=== PATIENT | male | born 1995 | race Caucasian/White ===

== ENCOUNTER 2024-10-02 09:26 | Inpatient (IN) | payer OTHER, SELFPAY ==
[2024-09-30 21:00] VITALS: BP 112/68
[2024-09-30 21:37] LABS: % Basophils 0.4 % (0-2); % Eosinophils 0.2 % (0-6); % Immature Granulocytes 0.4 % (0-0.5); % Lymphocytes 10.2 % (20.5-51.1); % Monocytes 7.1 % (1.7-9.3); % Neutrophils 81.7 % (42.2-75.2); Absolute Lymphocytes 0.6 10^3/uL (1.2-3.4); Absolute Monocytes 0.4 10^3/uL (0.1-0.6); Absolute Neutrophils 4.5 10^3/uL (1.4-6.5); Hematocrit 42.2 % (39.0-52.0); Hemoglobin 14.4 g/dL (13.0-18.0); Mean Corp Hgb Conc. 34.1 g/dL (33.0-37.0); Mean Corpuscular Hgb 27.1 pg (27.0-31.0); Mean Corpuscular Volume 79.3 fL (80.0-94.0); Nucleated Red Blood Cells % 0 % (-); Red Blood Cell Count 5.32 10^6/uL (4.70-6.10); Red Cell Dist. Width 16.5 % (11.5-14.5); White Blood Cell Count 5.5 10^3/uL (4.8-10.8)
[2024-09-30 21:45] LABS: Mean Platelet Volume 10.5 fL (7.4-10.4)
[2024-09-30 21:46] LABS: Platelet Count 68 10^3/uL (130-400)
[2024-09-30 21:51] LABS: ALT (SGPT) 118 U/L (0-50); AST (SGOT) 118 U/L (17-59); Albumin 3.7 g/dl (3.5-5.0); Alkaline Phosphatase 67 U/L (38-126); Blood Urea Nitrogen 10 mg/dl (9-20); Calcium 8.3 mg/dl (8.4-10.2); Carbon Dioxide 20 mmol/L (22-30); Chloride 102 mmol/L (98-107); Glucose 123 mg/dl (70-99); Lipase 164 U/L (23-300); Potassium 3.7 mmol/L (3.5-5.1); Sodium 131 mmol/L (135-145); Total Bilirubin 2.2 mg/dl (0.2-1.3); Total Protein 6.3 g/dl (6.3-8.2); eGFR > 60.00
[2024-09-30 21:56] LABS: COVID-19 Antigen Negative (Negative)
[2024-09-30 23:53] VITALS: BP 130/65
[2024-09-30 23:57] VITALS: BMI 32.3
[2024-10-01] VITALS (15 sets, daily range): BP systolic 93–143; BP diastolic 34–76; BMI 32.9
--- NOTE | 2024-10-01 00:58 | ED.GENMED ---
History of Present Illness
General
Chief Complaint: Fever
Source: patient
Exam Limitations: none
Time Seen by Provider: 10/01/24 00:42
Nursing documentation reviewed up to this point in time: agreed with
History of Present Illness
History of Present Illness:
29-year-old male with a past medical history of cystic fibrosis who presents to the emergency room for evaluation of fever and multiple other complaints. Patient says he has been sick for about 2 days. He says that symptoms became more severe
today. He describes fever and chills with Tmax 103 �F at home. He reports that he has had nausea, vomiting, upper abdominal pain. He says he has had profuse diarrhea nonbloody. He reports he has had a productive cough. He reports myalgias,
headache, fatigue. Nasal congestion. Denies sore throat. He denies any chest pain or significant shortness of breath. 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
He did apparently have negative flu and COVID swabs at urgent care today prior to ER referral.
Review of Systems
Review of Systems
All Other Systems: ROS reviewed and negative except as documented in HPI and ROS
Constitutional: Reports fever, fatigue and chills
EENT: Reports runny nose; Denies sore throat
Respiratory: Reports cough; Denies trouble breathing
Cardiac: Denies chest pain
ABD/GI: Reports abdominal pain, nausea, vomiting and diarrhea
: Denies flank pain
Musculoskeletal: Reports muscle pain
Neurological: Reports headache; Denies dizzy
Phy Exam
Physical Exam
Physical Exam:
General: Awake, alert, laying in bed appears uncomfortable
Head: Normocephalic, atraumatic
Eyes: Conjunctiva normal, sclera anicteric, pupils equal round and reactive to light bilaterally
Throat: Airway intact, dry mucous membranes
Neck: Trachea midline, supple without meningismus
Lungs: Clear to auscultation bilaterally, no wheezing, rales, rhonchi
Heart: Regular rate and rhythm, no murmurs, gallops, or rubs
Abd: Soft, non distended, markedly tender in the epigastrium
Neuro: No gross deficits
Skin: no rash
Extremities: No edema in extremities, equal pulses in all extremities
Scores
Heart Failure Risk
Heart Failure Risk Score: Not Applicable
Heart Score for Chest Pain Patients
STEMI patient?: Not applicable
Withdrawal Assessment of Alcohol
Withdrawal Assessment Completed?: Not applicable
Course
Orders/Labs/Results
Orders:
Orders
09/30/24 21:09
COVID-19 Antigen Urgent
Source: Nasal Swab
Complete Blood Count/With Diff Urgent
Comprehensive Metabolic Panel Urgent
Lipase Urgent
Influenza A+B Rapid Molecular Urgent
[facility] Source: Nasal Swab
Specimen Description:
10/01/24 00:56
CT Abd/pelvis W Iv Cont Urgent
Comment:
Reason For Exam: upper abd pain and tenderness, N/V
0.9% Sodium Chloride 1000 ml [Nss] 1,000 ml IV BOLUS
Morphine Sulfate 4 mg IV NOW STA
Ondansetron Injectable [Zofran] 4 mg IV NOW STA
CR Chest - 2 Views Urgent
Comment:
Reason For Exam: cough, fever, h/o CF
10/01/24 00:58
Acetaminophen [Tylenol] 650 mg PO NOW STA
10/01/24 01:02
Add On- LAB Urgent
Tests Added?: Lipase
10/01/24 01:20
Monotest Urgent
Abnormal Lab Results
09/30/24 10/01/24
21:09 01:20
MCV 79.3 L fL
(80.0-94.0)
RDW 16.5 H %
(11.5-14.5)
Plt Count 68 L 10^3/uL
(130-400)
MPV 10.5 H fL
(7.4-10.4)
Absolute Lymphs (auto) 0.6 L 10^3/uL
(1.2-3.4)
Neutrophils % 81.7 H %
(42.2-75.2)
Lymphocytes % 10.2 L %
(20.5-51.1)
Sodium 131 L mmol/L
(135-145)
Carbon Dioxide 20 L mmol/L
(22-30)
Glucose 123 H mg/dl
(70-99)
Calcium 8.3 L mg/dl
(8.4-10.2)
Total Bilirubin 2.2 H mg/dl
(0.2-1.3)
AST 118 H U/L
(17-59)
ALT 118 H U/L
(0-50)
Monoscreen Positive A
(Negative)
09/30/24 21:09
09/30/24 21:09
Vital Signs
Initial and Last Documented VS:
Initial Vital Signs
Temp Pulse Resp BP Pulse Ox
37.4 C 92 18 112/68 98
09/30/24 21:00 09/30/24 21:00 09/30/24 21:00 09/30/24 21:00 09/30/24 21:00
Last Documented Vital Signs
Temp Pulse Resp BP Pulse Ox
37.0 C 60 16 126/69 97
10/01/24 02:36 10/01/24 03:30 10/01/24 03:30 10/01/24 03:30 10/01/24 03:30
MDM/Problems Addressed
Differential Diagnosis Includes:
Pancreatitis, cholelithiasis, cholecystitis, gastritis/PUD, viral syndrome/mononucleosis, pneumonia
MDM/Problems Addressed:
29-year-old male with cystic fibrosis presents to the ER with multiple complaints chief among and abdominal pain with nausea/vomiting/diarrhea also having cough and congestion, high fever. He arrives to us normotensive, heart rate in the 80s,
normal respiratory rate, normal pulse ox; he does have a low-grade fever here reports 103 degree fever at home. Physical exam as above. Labs sent in triage including a CBC which shows new thrombocytopenia. CMP shows elevated T. bili and
transaminases. Added lipase. Will add urinalysis, chest x-ray, CT abdomen pelvis. Check Monospot. Provide fluids, antiemetic, pain control, Tylenol for fever. Reassess after the above.
Lipase normal. Chest x-ray reviewed by me shows no acute pneumonia. Patient is positive for mono. CT abdomen pending. Vital stable.
CT shows cirrhosis no other acute pathology; I spoke with patient he says that he has known liver disease related to cystic fibrosis and he was aware of this finding. Likely contributing to thrombocytopenia as last comparison lab is from 2016. He
is feeling much better after treatment here has not had additional vomiting. Will continue to monitor here in the emergency room and reassess if he remains well-appearing he can likely be discharged I did speak to him at length about diagnosis of
mononucleosis, precautions regarding splenic enlargement, discussed measures to avoid spreading to close contacts.
Chronic conditions affecting care:
Cystic fibrosis
*Radiology
Radiology exam reviewed: preliminary read by ED provider and radiology read reviewed
*Pulse Oximetry
Patient hypoxic: no
*Critical Care Note
Total Time (30-74mins, 75-104mins- exclusive of procedures): Not Applicable
Data Reviewed
Source: patient and family
ED Attending Note
-
Portions of this chart may have been created with voice recognition software.� Occasional wrong word or��sound alike� substitutions may have occurred due to the inherent limitations of voice recognition software.
Discharge Plan
Departure
Patient with high blood pressure during this ER visit?: No
Discharge Problem:
Mononucleosis, Thrombocytopenia, Cirrhosis
Instructions: Mononucleosis
Prescriptions:
No Action
bupropion HCl 100 MG tablet
200 mg PO DAILY
lisdexamfetamine [Vyvanse] 50 MG capsule
50 mg PO DAILY
Vitamin D
1 tab PO DAILY
Referrals:
UNKNOWN - PT DOES,NOT KNOW [Family Provider] -
Activity Restrictions/Additional Instructions:
Thank you for visiting the Emergency Department at [facility].
1. Please schedule a follow up appointment as directed. Call first thing tomorrow morning to make an appointment.
2. If indicated, please take your medications as instructed and indicated on discharge paperwork.
3. If any of your symptoms do not improve, or persist, or become more severe within 6-12 hours, please return to the emergency department for further care.
4. Please return to the emergency department if you develop a headache, neck pain/stiffness, fever greater than 100.4F, chest pain, shortness of breath, persistent nausea, vomiting, slurred speech, difficulty walking, numbness/tingling, weakness,
signs of infection or any other symptoms that are worrisome to you.
Please call [phone] if you have any questions.
Interventions
Interventions:
*Risk Screen - Suicide Last Done: 09/30/24 21:00
*General Assessment Last Done: 09/30/24 21:00
*Neglect/Abuse Screening Last Done: 09/30/24 21:00
ED- Fall Risk Assessment Last Done: 10/01/24 03:30
*ED COVID-19 Vaccine History Last Done: 09/30/24 21:00
ED- Neurological Assessment Last Done: 10/01/24 03:30
ED-Skin Assessment Last Done: 10/01/24 03:30
Discharge Date and Time
Print Language: SLOVENIAN
[2024-10-01] MEDS: NSS 1000 IV (01:17)
[2024-10-01] MEDS: MORPHINE SULFATE 4 MG IV ×4 (01:17→23:05)
[2024-10-01] MEDS: TYLENOL 650 MG PO (01:17)
[2024-10-01] MEDS: ZOFRAN 4 MG IV ×2 (01:17→16:58)
[2024-10-01 01:56] LABS: Monotest Positive (Negative)
--- NOTE | 2024-10-01 12:22 | HPS.HSE ---
Family Physician
-
Family Physician: NOT KNOW UNKNOWN - PT DOES
Chief Complaint
-
Fever, nausea, vomiting, abdominal pain
History of Present Illness
29 y/o male with past medical history of cystic fibrosis and liver cirrhosis presented with fever, nausea, vomiting and abdominal pain, as well as cough productive of clear mucus for approximately the past 2 days. He reported that his temperature at
home was as high as 103 F. He denied any dysuria, urinary frequency or suprapubic pain/tenderness. The abdominal pain is in the middle upper part of his abdomen.
Medical History
Past Medical History
Past Medical History: Reports Other (As per HPI above)
Past Surgical History: Reports Other ([place] teeth removal, dental implants. Ear tubes placement.)
Social History
Tobacco: Former Smoker
Alcohol: None
Drug: Marijuana
Family History
Family History: Not pertinent
Allergies / Home Medications
Allergies reflects when Allergies were last updated in [facility].
Home Medications with original date entered in [facility]
Allergy/Medication List:
Allergies
Allergy/AdvReac Type Severity Reaction Status Date / Time
Penicillins Allergy Unknown Verified 12/22/15 16:11
Home Medications
No Meds [No Current Medications] 10/01/24
Review of Systems
-
A 12 point ROS was completed and negative except as noted: Yes
Physical Exam
Vital Signs
Vital Signs
Temp Pulse Resp BP Pulse Ox
98.1 F 78 14 93/59 93
10/01/24 06:56 10/01/24 06:56 10/01/24 06:56 10/01/24 09:52 10/01/24 09:52
Physical Exam
General: No Apparent Distress
HEENT: NormoCephalic, Moist mucous membranes and Atraumatic
Respiratory: Clear
Cardiac: S1/S2 and Regular Rhythm
GI: Soft, Normal Bowel Sounds and Tender
Musculoskeletal: No Cyanosis and No Edema
Skin: Warm and Dry
Neuro: Awake, Alert and AO x 3
Psych: Calm and Intact Judgment/Insight
Laboratory Results
-
09/30/24 21:09
09/30/24 21:09
Laboratory Results
Total Bilirubin 2.2 mg/dl (0.2-1.3) H 09/30/24 21:09
AST 118 U/L (17-59) H 09/30/24 21:09
ALT 118 U/L (0-50) H 09/30/24 21:09
Alkaline Phosphatase 67 U/L (38-126) 09/30/24 21:09
Lipase Cancelled 10/01/24 00:56
Impression/Plan
-
Assessment/Plan
Fever, Abdominal Pain, Splenomegaly, Fatigue, Headache
Nausea and Vomiting
Monospot Test Positive
Infectious Mononucleosis
-Positive Monospot Test suggestive of Infectious Mononucleosis
-IV fluids, supportive care
-No UTI signs of symptoms
-No sore throat
-Does have symptoms suggestive of bronchitis
-Closely monitor patient's mouth/airway for any swelling or obstruction -- if this develops, then steroids will be needed
High AST and ALT
-Likely from infection as above and also patient's history of liver disease
-Monitor CMP
Thrombocytopenia
-Monitor CBC
Cough Productive of Clear Sputum
Acute Bronchitis
-Chest X-Ray with questionable minimal patchy left basilar opacity such as subsegmental atelectasis and/or pneumonia.
-Negative flu and COVID swabs at urgent care
Hepatic Cirrhosis on CT Imaging
Severe Diffuse Fatty Infiltration on CT Imaging
Splenomegaly, suggestive of portal hypertension, on CT Imaging
Large venous collaterals within the peritoneum and retroperitoneum, including esophageal varices, consistent with portal hypertension.
History of recurrent pancreatitis related to cystic fibrosis
Fat-containing umbilical hernia without evidence of incarceration.
Cystic Fibrosis
DVT Prophylaxis: SCDs. Lovenox.
[2024-10-01] MEDS: LR 1000 IV ×2 (14:01→23:16)
--- NOTE | 2024-10-01 15:25 | PTCARENOTE ---
Patient arrived from ER. Presents with abdominal pain, nausea and vomiting. + [place].
[2024-10-01] MEDS: DILAUDID 0.5 MG IV (15:52)
[2024-10-02] MEDS: MORPHINE SULFATE 4 MG IV ×5 (03:17→23:30)
[2024-10-02 03:18] VITALS: BP 128/69
--- NOTE | 2024-10-02 05:35 | PTCARENOTE ---
Patient's tele alarming for [employer]. patient is sleeping at this time. tele strip reviewed by MYCHAL Hernandez. no new orders at this time.
--- NOTE | 2024-10-02 06:57 | W.PN.HOSP.TC ---
Today's Communication/Plan
-
See plan
Assessment / Plan
Assessment / Plan
Physical Exam
General: No Apparent Distress
HEENT: Normocephalic. Moist mucous membranes
Respiratory: Clear to Auscultation Bilaterally
Cardiac: S1/S2 and Regular Rate and Rhythm
GI: Soft, Normal Bowel Sounds and Tenderness in upper abdomen
Musculoskeletal: No Cyanosis and No Edema
Skin: Warm and Dry
Neuro: Awake, Alert and AO x 3
Psych: Calm and Intact Judgment/Insight
Assessment/Plan
Fever, Abdominal Pain, Splenomegaly, Fatigue, Headache
Nausea and Vomiting
Monospot Test Positive
Infectious Mononucleosis
-Still with poor PO intake
-Positive Monospot Test suggestive of Infectious Mononucleosis, but this would not explain patient's abdominal pain
-IV fluids, supportive care
-No UTI signs or symptoms
-No sore throat at this time
-Does have symptoms suggestive of bronchitis
-Closely monitor patient's mouth/airway for any swelling or obstruction -- if this develops, then steroids will be needed
-Given patient significant CF history, cirrhosis, recurrent pancreatitis, etc, I called on 10/02/24 [facility] and spoke to Dr. Carlie Burrell,
coding clerk, and she accepted the patient for transfer, she mentioned Infectious Mononucleosis would not normally cause abdominal pain, and
recommended continued work-up and treatment of patient's abdominal pain, and to consider GI consultation, and if patient's respiratory symptoms worsen
to check CT Chest
High AST and ALT
-Improving
-Likely from infection as above and also patient's history of liver disease
-Monitor CMP
Thrombocytopenia
-Monitor CBC
-No signs or symptoms of bleeding
Cough Productive of Clear Sputum
Acute Bronchitis
-Chest X-Ray with questionable minimal patchy left basilar opacity such as subsegmental atelectasis and/or pneumonia.
-Negative flu and COVID swabs at urgent care
Hepatic Cirrhosis on CT Imaging
Severe Diffuse Fatty Infiltration on CT Imaging
Splenomegaly, suggestive of portal hypertension, on CT Imaging
Large venous collaterals within the peritoneum and retroperitoneum, including esophageal varices, consistent with portal hypertension.
History of recurrent pancreatitis related to cystic fibrosis
Fat-containing umbilical hernia without evidence of incarceration.
Cystic Fibrosis
DVT Prophylaxis: SCDs. Lovenox (May need to stop Lovenox if platelets drop to less than 50k)
Anticipated Discharge: > 48 hours
Subjective/Interval History
-
Date of Service: October 02, 2024
Objective Data
-
Labs:
Laboratory Results
10/02/24
06:54
WBC Pending
Hgb Pending
Hct Pending
Plt Count Pending
Sodium Pending
Potassium Pending
Chloride Pending
Carbon Dioxide Pending
BUN Pending
Creatinine Pending
Glucose Pending
Calcium Pending
Total Bilirubin Pending
AST Pending
ALT Pending
Alkaline Phosphatase Pending
Vital Signs:
Vital Signs
Temp Pulse Resp BP Pulse Ox
98.4 F 64 16 128/69 99
10/02/24 03:18 10/02/24 03:18 10/02/24 03:18 10/02/24 03:18 10/02/24 03:18
I&O
09/30/24 10/01/24 10/02/24
06:59 06:59 06:59
Intake Total 480 / 480
Output Total 1200 / 1200
Balance -720 / -720
[2024-10-02 07:45] LABS: % Basophils 0.8 % (0-2); % Eosinophils 2.8 % (0-6); % Immature Granulocytes 0.3 % (0-0.5); % Lymphocytes 29.9 % (20.5-51.1); % Monocytes 13.8 % (1.7-9.3); % Neutrophils 52.4 % (42.2-75.2); Absolute Eosinophils 0.1 10^3/uL (0-0.7); Absolute Lymphocytes 1.1 10^3/uL (1.2-3.4); Absolute Monocytes 0.5 10^3/uL (0.1-0.6); Absolute Neutrophils 1.9 10^3/uL (1.4-6.5); Hematocrit 41.1 % (39.0-52.0); Hemoglobin 13.4 g/dL (13.0-18.0); Mean Corp Hgb Conc. 32.6 g/dL (33.0-37.0); Mean Corpuscular Hgb 26.6 pg (27.0-31.0); Mean Corpuscular Volume 81.7 fL (80.0-94.0); Mean Platelet Volume 10.4 fL (7.4-10.4); Nucleated Red Blood Cells % 0 % (-); Platelet Count 59 10^3/uL (130-400); Red Blood Cell Count 5.03 10^6/uL (4.70-6.10); Red Cell Dist. Width 16.7 % (11.5-14.5); White Blood Cell Count 3.6 10^3/uL (4.8-10.8)
[2024-10-02 07:48] VITALS: BP 116/66
[2024-10-02] MEDS: LR 1000 IV ×2 (08:55→20:25)
[2024-10-02 09:13] LABS: ALT (SGPT) 92 U/L (0-50); AST (SGOT) 81 U/L (17-59); Albumin 3.1 g/dl (3.5-5.0); Alkaline Phosphatase 58 U/L (38-126); Blood Urea Nitrogen 9 mg/dl (9-20); Calcium 8.1 mg/dl (8.4-10.2); Carbon Dioxide 23 mmol/L (22-30); Chloride 105 mmol/L (98-107); Estimated Creatinine Clearance > 125 ml/min; Glucose 78 mg/dl (70-99); Magnesium 1.6 mg/dl (1.6-2.3); Potassium 3.6 mmol/L (3.5-5.1); Sodium 135 mmol/L (135-145); Total Bilirubin 1.8 mg/dl (0.2-1.3); Total Protein 5.6 g/dl (6.3-8.2); eGFR > 60.00
[2024-10-02 11:26] VITALS: BP 134/67
[2024-10-02] MEDS: ZOFRAN 4 MG IV ×2 (12:02→20:26)
--- NOTE | 2024-10-02 13:09 | CM ---
Pt seen bedside, initial assessment completed. Admitted for fever, nausea, vomiting, abdominal pain.
Pt reports that he lives w/ his fiance and grandmother in a 2 story townhouse- no steps to enter. Pt is independent w/ ambulating and ADLs, no DME identified. Pt denies SNF/VN/PT. No current OP or home services at this time.
PCP: [place] [facility], pt doesn't recall name of PCP
Pharmacy: [facility]
Address, point of contact and insurance verified. Confirmed w/ admission [place] health plan insurance as pt is listed as self pay.
Plan: Home; no needs likely
[2024-10-02 15:45] VITALS: BP 131/77
[2024-10-02 20:27] VITALS: BP 128/76
[2024-10-02 23:25] VITALS: BP 119/65
[2024-10-03 03:40] VITALS: BP 108/55
[2024-10-03] MEDS: MORPHINE SULFATE 4 MG IV (04:03)
[2024-10-03] MEDS: LR 1000 IV (05:39)
--- NOTE | 2024-10-03 07:33 | W.PN.HOSP.TC ---
Today's Communication/Plan
-
Discharge today
Assessment / Plan
Assessment / Plan
Physical Exam
General: No Apparent Distress
HEENT: Normocephalic. Moist mucous membranes
Respiratory: Clear to Auscultation Bilaterally
Cardiac: S1/S2 and Regular Rate and Rhythm
GI: Soft, Normal Bowel Sounds and Tenderness in upper abdomen
Musculoskeletal: No Cyanosis and No Edema
Skin: Warm and Dry
Neuro: Awake, Alert and AO x 3
Psych: Calm and Intact Judgment/Insight
Assessment/Plan
Fever, Abdominal Pain, Splenomegaly, Fatigue, Headache
Nausea and Vomiting - RESOLVED
Monospot Test Positive
Infectious Mononucleosis
-Positive Monospot Test suggestive of Infectious Mononucleosis, but this would not explain patient's abdominal pain
-IV fluids, supportive care
-No UTI signs or symptoms
-No sore throat at this time
-Does have symptoms suggestive of bronchitis
-Closely monitor patient's mouth/airway for any swelling or obstruction -- if this develops, then steroids will be needed
-Given patient significant CF history, cirrhosis, recurrent pancreatitis, etc, I called on 10/02/24 [facility] and spoke to Dr. Carlie Burrell,
international marketing executive, and she accepted the patient for transfer, she mentioned Infectious Mononucleosis would not normally cause abdominal pain, and
recommended continued work-up and treatment of patient's abdominal pain, and she also said to consider GI consultation, and if patient's respiratory symptoms worsen
to check CT Chest
-Patient today denied any shortness of breath or significant cough, and feels his breathing is at his normal usual self/is back to baseline
-Consulted GI: per [facility] communication between GI and myself, is it okay to discharge the patient today per GI -- patient's abdominal pain is likely from significant hepatosplenomegaly they are touching on CT.
-GI discussed abdominal contact precautions for spleen and will give him all his labs and imaging for [place]
-Appreciate GI
High AST and ALT - IMPROVED
-Improving
-Likely from infection as above and also patient's history of liver disease
-Monitor CMP
Thrombocytopenia
-Monitor CBC
-No signs or symptoms of bleeding
Cough Productive of Clear Sputum
Acute Bronchitis
-Chest X-Ray with questionable minimal patchy left basilar opacity such as subsegmental atelectasis and/or pneumonia.
-Negative flu and COVID swabs at urgent care
-Patient currently does not have any respiratory symptoms and says that he feels ready to go home today
Hepatic Cirrhosis on CT Imaging
Severe Diffuse Fatty Infiltration on CT Imaging
Splenomegaly, suggestive of portal hypertension, on CT Imaging
Large venous collaterals within the peritoneum and retroperitoneum, including esophageal varices, consistent with portal hypertension.
History of recurrent pancreatitis related to cystic fibrosis
Fat-containing umbilical hernia without evidence of incarceration.
Cystic Fibrosis
DVT Prophylaxis: SCDs. Lovenox (May need to stop Lovenox if platelets drop to less than 50k)
More than 30 minutes spent in discharge including
Final examination of the patient
Summarizing hospital stay
Instructions for continuing care to all relevant caregivers
Preparation of discharge records, prescriptions, and referral forms
Total time spent (in minutes): 35
Anticipated Discharge: Today
Subjective/Interval History
-
Date of Service: October 03, 2024
Patient was seen and examined. He reported feeling well, he said his abdominal pain is back to his baseline and he is willing to go home today. He is tolerating a diet.
Objective Data
-
Labs:
Laboratory Results
10/03/24
06:00
WBC Pending
Hgb Pending
Hct Pending
Plt Count Pending
Sodium Pending
Potassium Pending
Chloride Pending
Carbon Dioxide Pending
BUN Pending
Creatinine Pending
Glucose Pending
Calcium Pending
Total Bilirubin Pending
AST Pending
ALT Pending
Alkaline Phosphatase Pending
Vital Signs:
Vital Signs
Temp Pulse Resp BP Pulse Ox
97.8 F 65 16 108/55 99
10/03/24 03:40 10/03/24 03:40 10/03/24 03:40 10/03/24 03:40 10/03/24 03:40
I&O
10/02/24 10/03/24 10/04/24
06:59 06:59 06:59
Intake Total 480 / 480 1200 / 1200
Output Total 1200 / 1200
Balance -720 / -720 1200 / 1200
[2024-10-03 07:45] VITALS: BP 138/78
[2024-10-03 08:38] LABS: % Basophils 0.7 % (0-2); % Eosinophils 4.3 % (0-6); % Lymphocytes 28.2 % (20.5-51.1); % Monocytes 13.9 % (1.7-9.3); % Neutrophils 52.9 % (42.2-75.2); Absolute Eosinophils 0.1 10^3/uL (0-0.7); Absolute Lymphocytes 0.8 10^3/uL (1.2-3.4); Absolute Monocytes 0.4 10^3/uL (0.1-0.6); Absolute Neutrophils 1.5 10^3/uL (1.4-6.5); Hematocrit 41.3 % (39.0-52.0); Hemoglobin 13.3 g/dL (13.0-18.0); Mean Corp Hgb Conc. 32.2 g/dL (33.0-37.0); Mean Corpuscular Hgb 26.2 pg (27.0-31.0); Mean Corpuscular Volume 81.3 fL (80.0-94.0); Mean Platelet Volume 10.6 fL (7.4-10.4); Nucleated Red Blood Cells % 0 % (-); Platelet Count 62 10^3/uL (130-400); Red Blood Cell Count 5.08 10^6/uL (4.70-6.10); Red Cell Dist. Width 16.7 % (11.5-14.5); White Blood Cell Count 2.8 10^3/uL (4.8-10.8)
[2024-10-03 09:24] LABS: ALT (SGPT) 83 U/L (0-50); AST (SGOT) 82 U/L (17-59); Alkaline Phosphatase 57 U/L (38-126); Blood Urea Nitrogen 7 mg/dl (9-20); Calcium 8.2 mg/dl (8.4-10.2); Carbon Dioxide 22 mmol/L (22-30); Chloride 106 mmol/L (98-107); Estimated Creatinine Clearance > 125 ml/min; Glucose 82 mg/dl (70-99); Potassium 3.8 mmol/L (3.5-5.1); Sodium 135 mmol/L (135-145); Total Bilirubin 1.2 mg/dl (0.2-1.3); Total Protein 5.5 g/dl (6.3-8.2); eGFR > 60.00
[2024-10-03 09:48] LABS: Albumin 3.1 g/dl (3.5-5.0)
[2024-10-03 11:21] VITALS: BP 119/67
--- NOTE | 2024-10-03 14:39 | CM ---
Patient seen at bedside with john present. Patient states his plan is for discharge home with john, and he had questions about FMLA paperwork all sections of paperwork outlined with yellow for patient to complete and Blue for physician. Patient
to discuss with Attending or possibly with PCP. Patient with no other questions. CM will continue to follow for discharge planning needs.
Plan; home with no needs follow up with pcp
--- NOTE | 2024-10-03 14:42 | CON.GI ---
Addendum entered and electronically signed by Dustin Rollins MD 10/03/24 17:20:
I saw and examined the patient.
The ACCOUNT CLASSIFICATION CLERK's note was reviewed and I agree with the note.
29-year-old male with past medical history of cystic fibrosis, cirrhosis, variceal bleed, recurrent pancreatitis was followed at [facility] with multidisciplinary team presents to the emergency room on 10/01/2024 with generalized
feeling unwell for past 2 weeks with initially sore throat, aches, chills, fatigue, headache, dull upper abdominal pain and finally fever of 103 degrees. He went to urgent care where he had a negative flu and COVID swab. He was referred to the
emergency room for further workup. There he was diagnosed with acute mononucleosis. CT of the abdomen and pelvis showed hepatic cirrhosis and severe diffuse fatty liver. Splenomegaly with suggestive of portal hypertension. Large venous
collaterals within the peritoneum and retroperitoneum including esophageal varices consistent with portal hypertension. Patient's labs on presentation include WBC 5.5, hemoglobin 14.4, hematocrit 42.2, platelets 68,sodium 131, potassium 3.7, BUN
10, creatinine 0.8, glucose 123, total bilirubin 2.2, AST 118, ALT 118, alk phos 67, monoscreen positive. We are asked to evaluate for upper abdominal discomfort. Patient's upper abdominal pain likely secondary to hepatosplenomegaly from
combination of cirrhosis/fatty liver and capsular stretching from mononucleosis. Discussed with patient at length contact-guard spleen precautions. Copies of labs and CT report will be given to patient so he may give to multidisciplinary team at
[facility]. Patient follows with hepatology at [facility] as well as pulmonary.
Impression:
Mononucleosis
Cystic fibrosis
Cirrhosis- follow up with [facility]
Chronic pancreatitis
prior hx of ETOH abuse
plan
Continue supportive care as per medical team
Will recommend follow-up with [facility] hepatology after discharge with all the records
Advised to avoid contact sports or activities.
will s/o.
Original Note:
Consultation
-
Date/Time Consultation Requested: 10/03/24 3976
Date/Time Consultation Performed: 10/03/2024 1300
Requesting Provider: Dr. Felix
Performing Provider: Dr. Rollins/MYCHAL Jung
Reason for Consultation: Upper abdominal pain
Medical History
Chief Complaint / HPI
Chief Complaint: Fever
History of Present Illness:
29-year-old male with past medical history of cystic fibrosis, cirrhosis, variceal bleed, recurrent pancreatitis was followed at [facility] with multidisciplinary team presents to the emergency room on 10/01/2024 with generalized
feeling unwell for past 2 weeks with initially sore throat, aches, chills, fatigue, headache, dull upper abdominal pain and finally fever of 103 degrees. He went to urgent care where he had a negative flu and COVID swab. He was referred to the
emergency room for further workup. There he was diagnosed with acute mononucleosis. CT of the abdomen and pelvis showed hepatic cirrhosis and severe diffuse fatty liver. Splenomegaly with suggestive of portal hypertension. Large venous
collaterals within the peritoneum and retroperitoneum including esophageal varices consistent with portal hypertension. Patient's labs on presentation include WBC 5.5, hemoglobin 14.4, hematocrit 42.2, platelets 68,sodium 131, potassium 3.7, BUN
10, creatinine 0.8, glucose 123, total bilirubin 2.2, AST 118, ALT 118, alk phos 67, monoscreen positive. We are asked to evaluate for upper abdominal discomfort. The patient states to me that he feels like 'I am full and everything is stretching
and there'. Yesterday he had difficult to eat tolerating a diet. Today he states he is doing better. Patient's medicine attending reached out to his rn heart who accepted patient in transfer if needed. However bed was not available.
Patient states he is feeling much more improved today from days prior. WBC 2.8, hemoglobin 13.4, hematocrit 41.3, platelets 62, sodium 135, potassium 3.8, BUN 7, creatinine 0.6, glucose 82, total bilirubin 1.2, AST 82, ALT 83, alk phos 57. Patient
had bowel movement today. No signs of bleeding this was brown. He remains afebrile. His blood pressure is stable and he is not tachycardic. His O2 sat is 98% on room air. We discussed abdominal contact precautions to avoid any kind of contact
sports or trauma to his abdomen given splenomegaly. We also discussed understanding his baseline labs. He will be given copies of all his labs and imaging for review for his multidisciplinary team at [facility].
Past Medical History
Past Medical History: Other (Cystic fibrosis, cirrhosis, variceal bleed, pancreatitis)
Past Surgical History: None (Esophageal variceal banding)
Social History
Tobacco: Vaping (Occasional vaping, cessation advised)
Alcohol: None
Drug: None
Personal: Single
Employment: Employed
Family History
Family History: Other (No family history of gastrointestinal malignancy or IBD, family history of cystic fibrosis aunt)
Allergies / Home Medications
Allergy/AdvReac Type Severity Reaction Status Date / Time
Penicillins Allergy Unknown Verified 12/22/15 16:11
hydromorphone [From Dilaudid] AdvReac Nausea Verified 10/01/24 19:19
�Medication �Instructions �Recorded
No Meds [No Current Medications] 10/01/24
Review of Systems
-
All other systems: A 12 pt ROS was Negative except as stated above in HPI
Vital Signs
Temp Pulse Resp BP Pulse Ox
98.7 F 61 17 119/67 98
10/03/24 11:21 10/03/24 11:21 10/03/24 11:21 10/03/24 11:21 10/03/24 11:21
Physical Exam
Exam
General: No Apparent Distress
HEENT: Anicteric
Respiratory: Clear
Cardiac: Regular Rhythm
GI: Soft, Non Tender, Non Distended and Normal Bowel Sounds
Skin: Warm and Dry
Neuro: AO x 3
Psych: Calm
Results
WBC 2.8 10^3/uL (4.8-10.8) L 02/28/25 08:15
Hgb 13.3 g/dL (13.0-18.0) 10/03/24 08:15
Hct 41.3 % (39.0-52.0) 10/03/24 08:15
MCV 81.3 fL (80.0-94.0) 10/03/24 08:15
Plt Count 62 10^3/uL (130-400) L 10/03/24 08:15
Absolute Neuts (auto) 1.5 10^3/uL (1.4-6.5) 10/03/24 08:15
Sodium 135 mmol/L (135-145) 10/03/24 08:15
Potassium 3.8 mmol/L (3.5-5.1) 10/03/24 08:15
Chloride 106 mmol/L (98-107) 10/03/24 08:15
Carbon Dioxide 22 mmol/L (22-30) 10/03/24 08:15
BUN 7 mg/dl (9-20) L 10/03/24 08:15
Creatinine 0.6 mg/dL (0.7-1.3) L 10/03/24 08:15
Calcium 8.2 mg/dl (8.4-10.2) L 10/03/24 08:15
Total Bilirubin 1.2 mg/dl (0.2-1.3) 10/03/24 08:15
AST 82 U/L (17-59) H 10/03/24 08:15
ALT 83 U/L (0-50) H 10/03/24 08:15
Alkaline Phosphatase 57 U/L (38-126) 10/03/24 08:15
Lipase Cancelled 10/01/24 00:56
Diagnostic Image Results:
CT abdomen and pelvis with IV contrast:
IMPRESSION:
1. No acute CT abnormalities identified to explain the patient's symptoms. No evidence of intestinal obstruction, bowel inflammatory process, nephrolithiasis, hydronephrosis, cholecystitis, or abscess formation.
2. Findings suggestive of hepatic cirrhosis and severe diffuse fatty infiltration.
3. Splenomegaly, suggestive of portal hypertension.
4. Large venous collaterals within the peritoneum and retroperitoneum, including esophageal varices, consistent with portal hypertension.
5. Fat-containing umbilical hernia without evidence of incarceration.
Findings are in agreement with the [facility] radiology report
Prior GI Procedures:
EGD: [facility] with variceal banding. Repeat EGD performed at [facility]. Records unavailable to myself
Colonoscopy: Never
Assessment / Plan
-
29-year-old male with past medical history of cystic fibrosis, cirrhosis, variceal bleed, recurrent pancreatitis was followed at [facility] with multidisciplinary team presents to the emergency room on 10/01/2024 with generalized
feeling unwell for past 2 weeks with initially sore throat, aches, chills, fatigue, headache, dull upper abdominal pain and finally fever of 103 degrees. He went to urgent care where he had a negative flu and COVID swab. He was referred to the
emergency room for further workup. There he was diagnosed with acute mononucleosis. CT of the abdomen and pelvis showed hepatic cirrhosis and severe diffuse fatty liver. Splenomegaly with suggestive of portal hypertension. Large venous
collaterals within the peritoneum and retroperitoneum including esophageal varices consistent with portal hypertension. Patient's labs on presentation include WBC 5.5, hemoglobin 14.4, hematocrit 42.2, platelets 68,sodium 131, potassium 3.7, BUN
10, creatinine 0.8, glucose 123, total bilirubin 2.2, AST 118, ALT 118, alk phos 67, monoscreen positive. We are asked to evaluate for upper abdominal discomfort. Patient's upper abdominal pain likely secondary to hepatosplenomegaly from
combination of cirrhosis/fatty liver and capsular stretching from mononucleosis. Discussed with patient at length contact-guard spleen precautions. Copies of labs and CT report will be given to patient so he may give to multidisciplinary team at
[facility]. Patient follows with hepatology at [facility] as well as pulmonary.
Impression:
Mononucleosis
Upper abdominal discomfort
Cystic fibrosis
Cirrhosis
Plan:
-Abdominal contact precautions for mononucleosis
-Follow-up with [facility] hepatology
-Patient will be given labs and CT imaging for follow-up
-Advised on signs and symptoms of splenic rupture
-Discussed with patient platelet count, signs and symptoms of bleeding, signs and symptoms of worsening liver impairment.
-Vaping cessation advised
-Continue with small frequent meals throughout the day
-Continue Creon as per recommendations of primary team at [facility]
-
-
Thank you for consultation and allowing me to participate in the patient's care. Please call the container was[facility] GI physician during the after hours with any questions or concerns.
--- NOTE | 2024-10-03 15:09 | W.DCSUMMARY ---
Discharge Summary
Discharge Data
Date of Admission: 10/02/24
Date of Discharge: 10/03/24
Total time spent discharging patient (in min): 35
-
Pending Results: No
Hospital Course
29 y/o male with past medical history of cystic fibrosis, variceal bleed, recurrent pancreatitis and liver cirrhosis (seen by a multidisciplinary team at [facility] in [place]) presented with fever, nausea, vomiting and upper middle
abdominal pain, as well as cough productive of clear mucus for approximately 2 days prior to arrival. He reported that his temperature at home was as high as 103 F. Patient was tested for Monotest in the emergency room and it came back positive.
Patient was started on intravenous fluids given his nausea, vomiting and inability to tolerate oral intake. Patient's CT findings included cirrhosis, portal hypertension and splenomegaly -- patient said that he was seeing a whole team of
gastroenterologists/hepatologists at [place] already.
Patient was noted to have severe tenderness of his upper abdomen which he reported improved during his hospital stay -- gastroenterology was consulted and they mentioned the tenderness was likely secondary to hepatosplenomegaly from combination of
cirrhosis/fatty liver and capsular stretching from mononucleosis. Patient was advised extensively regarding contact-guard spleen precautions -- he was advised to avoid contact sports or activities. Patient reported better oral intake, no shortness
of breath or significant cough at the time of discharge; he was also able to ambulate well.
Discharge Plan
-
Patient Disposition: Home (Routine Discharge)
Discharge Diagnosis/Procedures: Fever, Abdominal Pain, Splenomegaly, Fatigue, Headache
Nausea and Vomiting - RESOLVED
Monospot Test Positive
Concern for Infectious Mononucleosis
High AST and ALT - IMPROVED
Thrombocytopenia
Cough Productive of Clear Sputum
Acute Bronchitis
Hepatic Cirrhosis on CT Imaging
Severe Diffuse Fatty Infiltration on CT Imaging
Splenomegaly, suggestive of portal hypertension, on CT Imaging
Large venous collaterals within the peritoneum and retroperitoneum, including esophageal varices, consistent with portal hypertension.
History of recurrent pancreatitis related to cystic fibrosis
Fat-containing umbilical hernia without evidence of incarceration.
Cystic Fibrosis
CT Abdomen/Pelvis (as per radiologist's report)
'1. No acute CT abnormalities identified to explain the patient's symptoms. No evidence of intestinal obstruction, bowel inflammatory process, nephrolithiasis, hydronephrosis, cholecystitis, or abscess formation.
2. Findings suggestive of hepatic cirrhosis and severe diffuse fatty infiltration.
3. Splenomegaly, suggestive of portal hypertension.
4. Large venous collaterals within the peritoneum and retroperitoneum, including esophageal varices, consistent with portal hypertension.
5. Fat-containing umbilical hernia without evidence of incarceration.'
Condition: Good
Diet: As tolerated
Activity: Other activity
Additional Activity: Follow abdominal contact precautions for your spleen as discussed by physicians during your hospital stay.
Blood Work: Check CBC (with differential), CMP and Magnesium with your primary care provider's office by Sunday, October 06, 2024.
Activity Restrictions/Additional Instructions:
VERY IMPORTANT: Follow abdominal contact precautions for your spleen/splenomegaly as discussed by physicians during your hospital stay.
It is extremely important that you follow-up with your liver specialists and all of your other physicians at [facility] by Sunday, October 06, 2024, and discuss your hospitalization and positive Monospot test with them.
Instructions: Mononucleosis Test
Referrals:
UNKNOWN - PT DOES,NOT KNOW [Family Provider] -
Prescriptions:
No Action
No Current Medications
0
Discharge Orders:
Discharge Patient (As Directed); Ordered 10/03/24
Ordered By: Franko Felix
Discharge Date and Time
Discharge Date/Time: 10/03/24 15:42
Print Language: BELARUSIAN
[2024-10-03] MEDS: AFLURIA (36 mos+) 2024-2025 FORMULA 0.5 ML IM (15:20)
[2024-10-03 15:40] VITALS: BP 120/66
== END 2024-10-03 15:42 | disposition home or self-care (01) | DRG 866 ==
LOC: 1 ACUTE 09:26
PROVIDERS: ADMITTING PHYSICIAN Hospitalist; CONSULT PHYSICIAN Internal Medicine Gastroenterology; EMERGENCY PHYSICIAN Emergency Medicine
PROC: 3E02340 Introduction of Influenza Vaccine into Muscle, Percutaneous Approach (ICD-10-PCS; 2024-10-03)
DX: B27.90 Infectious mononucleosis, unspecified without complication (principal); E84.9 Cystic fibrosis, unspecified; K86.1 Other chronic pancreatitis; K76.6 Portal hypertension; J98.11 Atelectasis; K76.9 Liver disease, unspecified; K74.60 Unspecified cirrhosis of liver; D69.6 Thrombocytopenia, unspecified; J20.9 Acute bronchitis, unspecified; K42.9 Umbilical hernia without obstruction or gangrene; K76.0 Fatty (change of) liver, not elsewhere classified; F10.11 Alcohol abuse, in remission; R16.2 Hepatomegaly with splenomegaly, not elsewhere classified; Z23 Encounter for immunization; Z11.52 Encounter for screening for COVID-19; Z87.891 Personal history of nicotine dependence; Z88.0 Allergy status to penicillin
CPT/HCPCS: 71046; 74177; 80053; 83690; 83735; 85025; 86308; 87502; 87811; 90686; 93005; G0008; Q9967